=== PATIENT | male | born 1935 | race Caucasian/White ===

== ENCOUNTER 2018-11-09 16:50 | Inpatient (IN) | payer MEDICARE, OTHER ==
[~2018-11-09] VITALS: Ht 172.7 cm; Wt 70.0 kg
[2018-11-09] MEDS ORDERED: ondansetron/PF 4mg/2ml inj IV ONE (18:50)
[2018-11-09] MEDS ORDERED: normal saline 1000ML IV soln IVB ONE (18:50)
[2018-11-09 19:23] LABS: BASOPHILS % (AUTO) 0.3 % (0-1); EOSINOPHILS % (AUTO) 0.1 % (0-6); HEMATOCRIT 29.2 % (42.0-52.0); HEMOGLOBIN 9.8 g/dl (14.0-17.9); LYMPHOCYTES # (AUTO) 0.9 X10'3 (1.1-4.8); LYMPHOCYTES % (AUTO) 10.7 % (21-51); MEAN CORPUSCULAR HEMOGLOBIN 30.4 PG (27.0-31.0); MEAN CORPUSCULAR HGB CONC 33.6 g/dL (33.0-36.5); MEAN CORPUSCULAR VOLUME 90.6 FL (78-98); MEAN PLATELET VOLUME 8.7 FL (7.4-10.4); MONOCYTES # (AUTO) 0.5 X10'3 (0-0.9); MONOCYTES % (AUTO) 6.4 % (2-12); NEUTROPHILS % (AUTO) 82.5 % (42-75); PLATELET COUNT 214 X10'3 (140-440); RED BLOOD COUNT 3.23 X10'6 (4.70-6.10); WHITE BLOOD COUNT 8.5 X10'3 (4.5-11.0)
[2018-11-09 19:34] LABS: PARTIAL THROMBOPLASTIN TIME 25 SECONDS (22-32)
[2018-11-09 19:37] LABS: ALANINE AMINOTRANSFERASE 12 U/L (12-78); ALBUMIN 3.4 G/DL (3.4-5.0); ALKALINE PHOSPHATASE 73 IU/L (46-116); ANION GAP 15 (8-16); ASPARTATE AMINO TRANSFERASE 14 U/L (10-37); BILIRUBIN,TOTAL 0.2 MG/DL (0.1-1.0); BLOOD UREA NITROGEN 32 MG/DL (7-18); BUN/CREATININE RATIO 9.2 (5.4-32.0); CALCIUM 8.8 MG/DL (8.5-10.1); CHLORIDE 107 MMOL/L (99-107); CREATININE 3.48 MG/DL (0.60-1.10); GLUCOSE 115 MG/DL (70-104); LIPASE 131 U/L (73-393); POTASSIUM 4.5 MMOL/L (3.5-5.1); SODIUM 137 MMOL/L (135-145); TOTAL CARBON DIOXIDE 15.1 MMOL/L (24-32); TOTAL PROTEIN 6.7 G/DL (6.4-8.2); eGFR 17 ML/MIN
[2018-11-09] MEDS ORDERED: pantoprazole 40 MG vial IV ONE (20:00)
[2018-11-09] MEDS ORDERED: FLO0.4C PO (20:07)
[2018-11-09] MEDS ORDERED: ACET-3068 PO (20:07)
[2018-11-09 20:29] LABS: OCCULT BLOOD STOOL POSITIVE (Neg)
[2018-11-09] MEDS ORDERED: ondansetron/PF 4mg/2ml inj IV PRN (21:05)
[2018-11-09] MEDS ORDERED: potassium Cl 40MEQ/NS 500ml 500 ML IV PRN ×2 (21:05)
[2018-11-09] MEDS ORDERED: magnesium 4gm in 100ml NS 100 ML IV PRN (21:05)
[2018-11-09] MEDS ORDERED: potassium Cl 20 mEq SR tablet PO PRN ×2 (21:05)
[2018-11-09] MEDS ORDERED: magnesium 2GM in 50ml NS 50 ML IV PRN (21:05)
[2018-11-09] MEDS: pantoprazole 40 MG vial IV SCH (21:10)
--- NOTE | 2018-11-09 21:32 | NUR ---
Patient in room . I have received report from TG STRICKLAND RN and had the opportunity to ask questions and assume patient care.
[2018-11-09] MEDS: normal saline 1000ml 1,000 ML IV SCH (21:42)
[2018-11-09 22:13] LABS: HEMATOCRIT 26.7 % (42.0-52.0); MEAN CORPUSCULAR HEMOGLOBIN 30.3 PG (27.0-31.0); MEAN CORPUSCULAR HGB CONC 33.6 g/dL (33.0-36.5); MEAN CORPUSCULAR VOLUME 90.2 FL (78-98); MEAN PLATELET VOLUME 8.4 FL (7.4-10.4); PLATELET COUNT 192 X10'3 (140-440); RED BLOOD COUNT 2.96 X10'6 (4.70-6.10); RED CELL DISTRIBUTION WIDTH 14.8 % (11.5-14.5); WHITE BLOOD COUNT 7.1 X10'3 (4.5-11.0)
[2018-11-09 22:15] VITALS: BP 157/67
[2018-11-09] MEDS: acetaminophen w/codeine (30MG) #3 tablet PO PRN (23:12)
[2018-11-10] VITALS (12 sets, daily range): BP systolic 106–152; BP diastolic 54–74
--- NOTE | 2018-11-10 06:40 | NUR ---
Problems reprioritized. Patient report given, questions answered & plan of care reviewed with TERESA ARORA.
[2018-11-10 06:42] LABS: BASOPHILS % (AUTO) 0.4 % (0-1); EOSINOPHILS # (AUTO) 0.1 X10'3 (0-0.9); EOSINOPHILS % (AUTO) 0.9 % (0-6); HEMATOCRIT 27.5 % (42.0-52.0); HEMOGLOBIN 9.3 g/dl (14.0-17.9); LYMPHOCYTES # (AUTO) 2.5 X10'3 (1.1-4.8); MEAN CORPUSCULAR HEMOGLOBIN 30.8 PG (27.0-31.0); MEAN CORPUSCULAR HGB CONC 33.7 g/dL (33.0-36.5); MEAN CORPUSCULAR VOLUME 91.3 FL (78-98); MEAN PLATELET VOLUME 8.9 FL (7.4-10.4); MONOCYTES # (AUTO) 0.7 X10'3 (0-0.9); MONOCYTES % (AUTO) 9.3 % (2-12); NEUTROPHILS # (AUTO) 4.1 X10'3 (1.8-7.7); NEUTROPHILS % (AUTO) 55.4 % (42-75); PLATELET COUNT 190 X10'3 (140-440); RED BLOOD COUNT 3.01 X10'6 (4.70-6.10); RED CELL DISTRIBUTION WIDTH 14.9 % (11.5-14.5); WHITE BLOOD COUNT 7.3 X10'3 (4.5-11.0)
--- NOTE | 2018-11-10 07:01 | NUR ---
Patient in room [facility]. I have received report from Mira MOORE and had the opportunity to ask questions and assume patient care.
[2018-11-10 07:02] LABS: ALBUMIN 3.2 G/DL (3.4-5.0); ANION GAP 12 (8-16); BLOOD UREA NITROGEN 29 MG/DL (7-18); BUN/CREATININE RATIO 8.8 (5.4-32.0); CALCIUM 8.9 MG/DL (8.5-10.1); CHLORIDE 111 MMOL/L (99-107); GLUCOSE 92 MG/DL (70-104); MAGNESIUM 1.7 MG/DL (1.5-2.4); POTASSIUM 4.3 MMOL/L (3.5-5.1); SODIUM 140 MMOL/L (135-145); TOTAL CARBON DIOXIDE 17.1 MMOL/L (24-32); eGFR 18 ML/MIN
[2018-11-10] MEDS: normal saline 1000ml 1,000 ML IV SCH ×3 (07:04→21:29)
[2018-11-10] MEDS: tamsulosin 0.4mg capsule PO SCH (07:15)
[2018-11-10] MEDS: acetaminophen w/codeine (30MG) #3 tablet PO PRN ×2 (07:15→20:26)
[2018-11-10] MEDS: K and/or MAG REPLACEMENT MC SCH (07:46)
[2018-11-10] MEDS: pantoprazole 40 MG vial IV SCH (07:46)
--- NOTE | 2018-11-10 10:06 | NUR ---
Pt taken down for CT via W/C.
[2018-11-10] MEDS: pantoprazole 40MG/NS 100ML BAG 100 ML IV SCH ×4 (10:39→21:28)
--- NOTE | 2018-11-10 11:31 | NUR ---
Patient taken down to GI lab for EGD via W/C.
[2018-11-10] MEDS ORDERED: MIDAZolam 5mg/5ml vial ONE (11:32)
[2018-11-10] MEDS ORDERED: fentaNYL/PF 50MCG/1 ML 2ML syringe ONE (11:33)
[2018-11-10] MEDS ORDERED: LIDOcaine Viscous 15ml cup ONE (11:33)
--- NOTE | 2018-11-10 12:48 | NUR ---
Dr. Larsen aware of EGD results. No new orders at this time.
[2018-11-10 14:41] LABS: H PYLORI ANTIBODY NEGATIVE (Neg)
--- NOTE | 2018-11-10 18:06 | NUR ---
Problems reprioritized. Patient report given, questions answered & plan of care reviewed with Mira MOORE.
--- NOTE | 2018-11-10 18:09 | NUR ---
Patient in room [facility]. I have received report from TERESA ARORA and had the opportunity to ask questions and assume patient care. Addendum: 11/10/18 at 1809 by Ella Enriquez RN Amended: Links added.
[2018-11-11] VITALS: BP 145/72
[2018-11-11] MEDS: pantoprazole 40MG/NS 100ML BAG 100 ML IV SCH ×4 (02:32→11:58)
[2018-11-11 06:07] LABS: EOSINOPHILS # (AUTO) 0.1 X10'3 (0-0.9); HEMOGLOBIN 7.6 g/dl (14.0-17.9); PLATELET COUNT 142 X10'3 (140-440)
[2018-11-11 06:10] LABS: BASOPHILS % (AUTO) 0.4 % (0-1); EOSINOPHILS % (AUTO) 1.3 % (0-6); HEMATOCRIT 22.3 % (42.0-52.0); LYMPHOCYTES # (AUTO) 1.6 X10'3 (1.1-4.8); LYMPHOCYTES % (AUTO) 33.6 % (21-51); MEAN CORPUSCULAR VOLUME 91.3 FL (78-98); MEAN PLATELET VOLUME 9.1 FL (7.4-10.4); MONOCYTES # (AUTO) 0.5 X10'3 (0-0.9); NEUTROPHILS # (AUTO) 2.5 X10'3 (1.8-7.7); NEUTROPHILS % (AUTO) 53.7 % (42-75); RED BLOOD COUNT 2.45 X10'6 (4.70-6.10); RED CELL DISTRIBUTION WIDTH 15.2 % (11.5-14.5); WHITE BLOOD COUNT 4.7 X10'3 (4.5-11.0)
--- NOTE | 2018-11-11 06:17 | NUR ---
Problems reprioritized. Patient report given, questions answered & plan of care reviewed with TERESA ARORA.
[2018-11-11 06:18] LABS: ALBUMIN 2.5 G/DL (3.4-5.0); ANION GAP 10 (8-16); BLOOD UREA NITROGEN 25 MG/DL (7-18); BUN/CREATININE RATIO 7.8 (5.4-32.0); CALCIUM 7.8 MG/DL (8.5-10.1); CHLORIDE 113 MMOL/L (99-107); GLUCOSE 95 MG/DL (70-104); MAGNESIUM 1.4 MG/DL (1.5-2.4); POTASSIUM 3.9 MMOL/L (3.5-5.1); SODIUM 139 MMOL/L (135-145); TOTAL CARBON DIOXIDE 15.9 MMOL/L (24-32); eGFR 19 ML/MIN
--- NOTE | 2018-11-11 06:21 | NUR ---
Patient in room [facility]. I have received report from Mira MOORE and had the opportunity to ask questions and assume patient care.
[2018-11-11] MEDS: K and/or MAG REPLACEMENT MC SCH (07:17)
[2018-11-11 07:19] LABS: ANISOCYTOSIS 1+; BURR CELLS 1+; HYPOCHROMASIA 1+; PLATELET ESTIMATE NORMAL; POLYCHROMASIA FEW
[2018-11-11] MEDS: tamsulosin 0.4mg capsule PO SCH (07:19)
[2018-11-11] MEDS: magnesium Cl slow-release 64mg tablet PO PRN ×2 (07:19→20:37)
[2018-11-11 07:28] VITALS: BP 111/60
[2018-11-11 08:22] VITALS: BP_SYST 111; BP_SYST 146; BP_SYST 155; BP_DIAS 60; BP_DIAS 66; BP_DIAS 68
[2018-11-11 11:05] LABS: BASOPHILS % (AUTO) 0.4 % (0-1); EOSINOPHILS # (AUTO) 0.1 X10'3 (0-0.9); EOSINOPHILS % (AUTO) 1.3 % (0-6); HEMOGLOBIN 7.7 g/dl (14.0-17.9); LYMPHOCYTES # (AUTO) 1.1 X10'3 (1.1-4.8); LYMPHOCYTES % (AUTO) 24.6 % (21-51); MEAN CORPUSCULAR HEMOGLOBIN 30.5 PG (27.0-31.0); MEAN CORPUSCULAR HGB CONC 33.5 g/dL (33.0-36.5); MEAN CORPUSCULAR VOLUME 91.2 FL (78-98); MEAN PLATELET VOLUME 8.7 FL (7.4-10.4); MONOCYTES # (AUTO) 0.5 X10'3 (0-0.9); MONOCYTES % (AUTO) 11.7 % (2-12); NEUTROPHILS # (AUTO) 2.9 X10'3 (1.8-7.7); PLATELET COUNT 140 X10'3 (140-440); RED BLOOD COUNT 2.52 X10'6 (4.70-6.10); RED CELL DISTRIBUTION WIDTH 14.9 % (11.5-14.5); WHITE BLOOD COUNT 4.6 X10'3 (4.5-11.0)
[2018-11-11 12:00] VITALS: BP 140/87
--- NOTE | 2018-11-11 12:13 | NUR ---
Informed Dr. Lrasen of [facility] of .01/22. aware, no new orders at this time. Will continue to monitor.
[2018-11-11] MEDS: pantoprazole 40 MG vial IV SCH ×2 (12:59→19:17)
[2018-11-11] MEDS: sodium bicarbonate 650mg tablet PO SCH ×2 (13:00→20:37)
[2018-11-11] MEDS: ferrous gluconate 324mg tablet PO SCH ×2 (13:00→16:48)
[2018-11-11 18:00] VITALS: BP_SYST 136; BP_SYST 145; BP_SYST 151; BP_DIAS 63; BP_DIAS 64; BP_DIAS 71
--- NOTE | 2018-11-11 18:27 | NUR ---
Patient in room [facility]. I have received report from TERESA Oneill and had the opportunity to ask questions and assume patient care. In no apparent distress, resting comfortably on room air. Call light and items of frequent use within reach. Will continue to monitor.
--- NOTE | 2018-11-11 18:31 | NUR ---
Problems reprioritized. Patient report given, questions answered & plan of care reviewed with Belén MOORE.
[2018-11-11] MEDS: acetaminophen w/codeine (30MG) #3 tablet PO PRN (20:40)
[2018-11-12] VITALS: BP 127/55
[2018-11-12 06:24] LABS: BASOPHILS % (AUTO) 0.4 % (0-1); EOSINOPHILS # (AUTO) 0.1 X10'3 (0-0.9); EOSINOPHILS % (AUTO) 1.3 % (0-6); HEMATOCRIT 23.4 % (42.0-52.0); HEMOGLOBIN 7.9 g/dl (14.0-17.9); LYMPHOCYTES # (AUTO) 1.5 X10'3 (1.1-4.8); LYMPHOCYTES % (AUTO) 32.4 % (21-51); MEAN CORPUSCULAR HEMOGLOBIN 30.5 PG (27.0-31.0); MEAN CORPUSCULAR HGB CONC 33.7 g/dL (33.0-36.5); MEAN CORPUSCULAR VOLUME 90.4 FL (78-98); MONOCYTES # (AUTO) 0.6 X10'3 (0-0.9); MONOCYTES % (AUTO) 12.4 % (2-12); NEUTROPHILS # (AUTO) 2.4 X10'3 (1.8-7.7); NEUTROPHILS % (AUTO) 53.5 % (42-75); PLATELET COUNT 143 X10'3 (140-440); RED BLOOD COUNT 2.58 X10'6 (4.70-6.10); RED CELL DISTRIBUTION WIDTH 15.2 % (11.5-14.5); WHITE BLOOD COUNT 4.6 X10'3 (4.5-11.0)
[2018-11-12 06:33] LABS: ALBUMIN 2.6 G/DL (3.4-5.0); ANION GAP 7 (8-16); BLOOD UREA NITROGEN 24 MG/DL (7-18); BUN/CREATININE RATIO 6.9 (5.4-32.0); CALCIUM 8.2 MG/DL (8.5-10.1); CHLORIDE 114 MMOL/L (99-107); CREATININE 3.46 MG/DL (0.60-1.10); GLUCOSE 93 MG/DL (70-104); MAGNESIUM 1.6 MG/DL (1.5-2.4); POTASSIUM 4.2 MMOL/L (3.5-5.1); SODIUM 141 MMOL/L (135-145); TOTAL CARBON DIOXIDE 19.7 MMOL/L (24-32); eGFR 17 ML/MIN
--- NOTE | 2018-11-12 06:34 | NUR ---
Problems reprioritized. Patient report given, questions answered & plan of care reviewed with TERESA Day.
[2018-11-12 07:00] VITALS: BP 164/79
[2018-11-12 08:00] VITALS: BP_SYST 156; BP_SYST 160; BP_SYST 164; BP_DIAS 68; BP_DIAS 72; BP_DIAS 79
[2018-11-12] MEDS: K and/or MAG REPLACEMENT MC SCH (08:00)
[2018-11-12] MEDS: acetaminophen w/codeine (30MG) #3 tablet PO PRN ×2 (08:02→20:50)
[2018-11-12] MEDS: sodium bicarbonate 650mg tablet PO SCH ×3 (08:02→20:50)
[2018-11-12] MEDS: tamsulosin 0.4mg capsule PO SCH (08:02)
[2018-11-12] MEDS: pantoprazole 40 MG vial IV SCH ×2 (08:02→20:40)
[2018-11-12] MEDS: ferrous gluconate 324mg tablet PO SCH ×3 (08:09→17:51)
[2018-11-12 11:30] VITALS: BP 138/56
[2018-11-12] MEDS: bisacodyl 10mg suppository rectal RC PRN (12:11)
[2018-11-12] MEDS: normal saline 1000ml 1,000 ML IV SCH (14:00)
--- NOTE | 2018-11-12 18:30 | NUR ---
Patient in room [facility]. I have received report from SPARKLE MOORE and had the opportunity to ask questions and assume patient care.
[2018-11-12 20:00] VITALS: BP 127/58
[2018-11-12] MEDS ORDERED: docusate sod 250mg capsule PO SCH (21:00)
[2018-11-13] VITALS: BP 150/56
[2018-11-13] MEDS: normal saline 1000ml 1,000 ML IV SCH (04:46)
[2018-11-13 05:54] LABS: BASOPHILS % (AUTO) 0.3 % (0-1); EOSINOPHILS # (AUTO) 0.1 X10'3 (0-0.9); EOSINOPHILS % (AUTO) 1.2 % (0-6); HEMATOCRIT 27.3 % (42.0-52.0); HEMOGLOBIN 9.1 g/dl (14.0-17.9); LYMPHOCYTES # (AUTO) 2.5 X10'3 (1.1-4.8); LYMPHOCYTES % (AUTO) 40.3 % (21-51); MEAN CORPUSCULAR HEMOGLOBIN 30.3 PG (27.0-31.0); MEAN CORPUSCULAR HGB CONC 33.4 g/dL (33.0-36.5); MEAN CORPUSCULAR VOLUME 90.5 FL (78-98); MEAN PLATELET VOLUME 9.1 FL (7.4-10.4); MONOCYTES # (AUTO) 0.6 X10'3 (0-0.9); MONOCYTES % (AUTO) 9.8 % (2-12); NEUTROPHILS % (AUTO) 48.4 % (42-75); PLATELET COUNT 170 X10'3 (140-440); RED BLOOD COUNT 3.02 X10'6 (4.70-6.10); RED CELL DISTRIBUTION WIDTH 15.5 % (11.5-14.5); WHITE BLOOD COUNT 6.3 X10'3 (4.5-11.0)
[2018-11-13 06:05] LABS: ALBUMIN 2.9 G/DL (3.4-5.0); ANION GAP 9 (8-16); BLOOD UREA NITROGEN 33 MG/DL (7-18); BUN/CREATININE RATIO 9.7 (5.4-32.0); CALCIUM 8.6 MG/DL (8.5-10.1); CHLORIDE 113 MMOL/L (99-107); GLUCOSE 97 MG/DL (70-104); MAGNESIUM 1.7 MG/DL (1.5-2.4); POTASSIUM 4.6 MMOL/L (3.5-5.1); SODIUM 142 MMOL/L (135-145); TOTAL CARBON DIOXIDE 20.4 MMOL/L (24-32); eGFR 17 ML/MIN
--- NOTE | 2018-11-13 06:30 | NUR ---
Problems reprioritized. Patient report given, questions answered & plan of care reviewed with SPARKLE MOORE.
[2018-11-13 07:00] VITALS: BP 152/59
[2018-11-13] MEDS: tamsulosin 0.4mg capsule PO SCH (07:16)
[2018-11-13] MEDS: sodium bicarbonate 650mg tablet PO SCH ×2 (07:16→12:26)
[2018-11-13] MEDS: pantoprazole 40 MG vial IV SCH (07:16)
[2018-11-13] MEDS: acetaminophen w/codeine (30MG) #3 tablet PO PRN ×2 (07:16→13:51)
[2018-11-13] MEDS: K and/or MAG REPLACEMENT MC SCH (08:00)
[2018-11-13] MEDS: ferrous gluconate 324mg tablet PO SCH ×3 (09:56→16:37)
[2018-11-13 12:00] VITALS: BP 109/52
[2018-11-13] MEDS ORDERED: magnesium hydroxide 30ml (MOM) UD suspension PO ONE (13:35)
[2018-11-13] MEDS ORDERED: docusate sod 100mg capsule PO ONE (13:35)
[2018-11-13] MEDS ORDERED: DOCU-28 PO (13:39)
[2018-11-13] MEDS ORDERED: PANT-47 PO (13:39)
[2018-11-13] MEDS: bisacodyl 10mg suppository rectal RC PRN (13:45)
[2018-11-13] MEDS ORDERED: ondansetron 4mg rapidly disintigrating tab PO ONE (16:00)
--- NOTE | 2018-11-13 18:00 | NUR ---
Domingo Ferreira here to take patient home Addendum: 11/13/18 at 1813 by Barb Wall RN pt states that he understands all DC instructions and will follow up with PCP as needed.
[2018-11-13] MEDS ORDERED: pantoprazole 40mg Tablet.DR PO SCH (20:00)
== END 2018-11-13 17:56 | disposition home health service (06) | DRG 378 ==
LOC: ER 16:51 → SUR 3N 21:43 → OBSVTOIN 21:43 → CMPBEDREQ 11-12 19:33
PROVIDERS: ADMIT Internal Medicine; ATTEND Family Medicine
PROC: 0DB68ZX Excision of Stomach, Via Natural or Artificial Opening Endoscopic, Diagnostic (ICD-10-PCS; principal; 2018-11-10)
DX: K29.71 Gastritis, unspecified, with bleeding (principal); D62 Acute posthemorrhagic anemia; N18.4 Chronic kidney disease, stage 4 (severe); N17.9 Acute kidney failure, unspecified; K86.1 Other chronic pancreatitis; Q61.3 Polycystic kidney, unspecified; K29.81 Duodenitis with bleeding; R91.1 Solitary pulmonary nodule; F02.80 Dementia in other diseases classified elsewhere, unspecified severity, without behavioral disturbance, psychotic disturbance, mood disturbance, and anxiety; G30.9 Alzheimer's disease, unspecified; K57.30 Diverticulosis of large intestine without perforation or abscess without bleeding; F43.10 Post-traumatic stress disorder, unspecified; F32.9 Major depressive disorder, single episode, unspecified; N40.0 Benign prostatic hyperplasia without lower urinary tract symptoms; E05.00 Thyrotoxicosis with diffuse goiter without thyrotoxic crisis or storm; E01.0 Iodine-deficiency related diffuse (endemic) goiter; G89.29 Other chronic pain; M54.2 Cervicalgia; F17.200 Nicotine dependence, unspecified, uncomplicated; E78.5 Hyperlipidemia, unspecified; H40.9 Unspecified glaucoma; R91.8 Other nonspecific abnormal finding of lung field; K59.00 Constipation, unspecified; I12.9 Hypertensive chronic kidney disease with stage 1 through stage 4 chronic kidney disease, or unspecified chronic kidney disease; N21.0 Calculus in bladder; Z88.8 Allergy status to other drugs, medicaments and biological substances; Z91.041 Radiographic dye allergy status; Z86.73 Personal history of transient ischemic attack (TIA), and cerebral infarction without residual deficits; Z56.0 Unemployment, unspecified
CPT/HCPCS: 36415; 43239; 71045; 71250; 74176; 80048; 80053; 82272; 83690; 83735; 85025; 85027; 85610; 85730; 86677; 87070; 93005; 99152; A4620; C9113; G0378; J2250; J2405; J3010; J7030

== ENCOUNTER 2018-11-22 18:51 | Emergency (ER) | payer MEDICARE, OTHER ==
[~2018-11-22] VITALS: Ht 172.7 cm; Wt 75.0 kg
[~2018-11-22 18:51] MED LIST: ACET-3068 PO; DOCU-28 PO; FLO0.4C PO; PANT-47 PO
[2018-11-22 19:13] VITALS: BP 193/78
[2018-11-22 19:51] LABS: BASOPHILS % (AUTO) 0.5 % (0-1); EOSINOPHILS % (AUTO) 0.6 % (0-6); HEMATOCRIT 29.9 % (42.0-52.0); HEMOGLOBIN 10.1 g/dl (14.0-17.9); LYMPHOCYTES # (AUTO) 1.1 X10'3 (1.1-4.8); LYMPHOCYTES % (AUTO) 16.9 % (21-51); MEAN CORPUSCULAR HEMOGLOBIN 30.4 PG (27.0-31.0); MEAN CORPUSCULAR HGB CONC 33.6 g/dL (33.0-36.5); MEAN CORPUSCULAR VOLUME 90.5 FL (78-98); MEAN PLATELET VOLUME 8.7 FL (7.4-10.4); MONOCYTES # (AUTO) 0.4 X10'3 (0-0.9); MONOCYTES % (AUTO) 6.8 % (2-12); NEUTROPHILS # (AUTO) 4.7 X10'3 (1.8-7.7); NEUTROPHILS % (AUTO) 75.2 % (42-75); PLATELET COUNT 219 X10'3 (140-440); RED CELL DISTRIBUTION WIDTH 15.2 % (11.5-14.5); WHITE BLOOD COUNT 6.3 X10'3 (4.5-11.0)
[2018-11-22 20:06] LABS: ALANINE AMINOTRANSFERASE 11 U/L (12-78); ALBUMIN 3.2 G/DL (3.4-5.0); ALKALINE PHOSPHATASE 68 IU/L (46-116); ANION GAP 14 (8-16); ASPARTATE AMINO TRANSFERASE 18 U/L (10-37); BILIRUBIN,TOTAL 0.2 MG/DL (0.1-1.0); BLOOD UREA NITROGEN 29 MG/DL (7-18); BUN/CREATININE RATIO 7.9 (5.4-32.0); CALCIUM 8.5 MG/DL (8.5-10.1); CHLORIDE 108 MMOL/L (99-107); CREATININE 3.66 MG/DL (0.60-1.10); GLUCOSE 99 MG/DL (70-104); POTASSIUM 4.6 MMOL/L (3.5-5.1); SODIUM 140 MMOL/L (135-145); TOTAL CARBON DIOXIDE 17.7 MMOL/L (24-32); TOTAL PROTEIN 6.4 G/DL (6.4-8.2); eGFR 16 ML/MIN
[2018-11-22] MEDS ORDERED: ONDA4TAB6 PO (20:46)
[2018-11-22] MEDS ORDERED: PANT-47 PO (20:46)
--- NOTE | 2018-11-23 18:06 | NUR ---
PT'S DAUGHTER, BLU BORREGO, CALLED REGARDING PT'S RX. RX FOR PROTONIX AND ZOFRAN [place] [facility] [facility] [place] AND THE PHARMACY CLOSED BEFORE THEY COULD PICK IT UP. CALLED TO SEE IF THE RX COULD BE CALLED INTO [facility] IN [facility]. SPOKE WITH ESTEFANY LOAIZA AND STATES THAT RX COULD BE CALLED IN. BLU WAS NOTIFIED AND RX CALLED INTO [facility]; ZOFRAN 4MG PO Q6H FOR 5 DAYS #20; PROTONIX 40MG' 1 TAB DAILY FOR 30 DAYS #30; NO REFILLS ON BOTH RX.
== END 2018-11-22 21:16 | disposition home or self-care (01) ==
LOC: ER 18:51
DX: K92.2 Gastrointestinal hemorrhage, unspecified (principal); I10 Essential (primary) hypertension; E05.00 Thyrotoxicosis with diffuse goiter without thyrotoxic crisis or storm; G89.29 Other chronic pain; Z56.0 Unemployment, unspecified; Z88.6 Allergy status to analgesic agent; Z88.8 Allergy status to other drugs, medicaments and biological substances; Z79.899 Other long term (current) drug therapy; Z86.73 Personal history of transient ischemic attack (TIA), and cerebral infarction without residual deficits
CPT/HCPCS: 36415; 80053; 85025; 85610; 99284